=== PATIENT | female | born 1950 | race Caucasian/White ===

== ENCOUNTER 2017-02-12 14:40 | Emergency (ER) | payer OTHER, MEDICARE ==
[2017-02-12] MEDS ORDERED: NS 1,000 ML IV ONE ×2 (15:01→16:52)
[2017-02-12 15:08] VITALS: RESP 16
--- NOTE | 2017-02-12 15:19 | UCPHY ---
H & P Patient Type: New Chief Complaint Nursing Narrative: N/V since 0300 this AM in pt with diagnosed colitis and IBSD. took Zofran at 1100 which helped some, but feels severely dehydrated. Time Seen by Provider: 02/12/17 14:59 HPI/ROS: CHIEF COMPLAINT: Nausea and vomiting. HISTORY OF PRESENT ILLNESS: The patient is a 66-year-old female with history of lymphocytic colitis (" while she does have daily diarrhea, it is not bloody) who presenting with nausea and vomiting There has been no change in her colon output and diarrhea as per her baseline The patient arrived to [place] 5 days ago. She went to [place] over the weekend and developed nausea and vomiting. She took Zofran which slightly improved her symptoms. The patient woke up at 3am with nausea and vomiting. She reports multiple episodes of emesis, that will not stop. She has no associated abdominal pain fever or chills. No sick contacts. The patient has diarrhea due to colitis and denies any changes with her diarrhea. No fever or chills. REVIEW OF SYSTEMS: Constitutional: No fever, no chills. Eyes: No discharge. ENT: No sore throat. Cardiovascular: No chest pain, no palpitations. Respiratory: No cough, shortness of breath, or wheezing. Gastrointestinal: See above. Genitourinary: No hematuria or frequency. Musculoskeletal: No back pain. Skin: No rashes. Neurological: No headache. 10 point ROS otherwise negative Source: Patient - Personal History Current Tetanus Diphtheria and Acellular Pertussis (TDAP): Yes - Medical/Surgical History Hx Asthma: No Hx Chronic Respiratory Disease: No Hx Diabetes: No Hx Cardiac Disease: No Hx Renal Disease: No Hx Cirrhosis: No Hx Alcoholism: No Hx HIV/AIDS: No Hx Splenectomy or Spleen Trauma: No Other PMH: IBSD, lymphocytic colitis - Family History Significant Family History: No pertinent family hx - Social History Smoking Status: Never smoked Alcohol Use: None Drug Use: None - Physical Exam Exam: General Appearance: Alert, no distress. Afebrile. Normal phonation. No respiratory distress. Eyes: Pupils equal and round no pallor or injection. No icterus ENT, Mouth: Mucous membranes dry. Pharynx without erythema or exudate. TM Clear. Neck: No adenopathy. Supple. No JVD. Trachea in midline. Respiratory: There are no retractions, lungs are clear to auscultation. Cardiovascular: Regular rate and rhythm, without murmur Abdomen: Soft and nontender, no masses, bowel sounds normal. Neurological: Ox3. No motor weakness. Sensation intact. Gait nl. Skin: Warm and dry, no rashes. Musculoskeletal: No joint swelling. Extremities: No edema. Homans sign negative. No cords. Psychiatric: Normal affect. Patient is oriented X 3, there is no agitation Constitutional: Initial Vital Signs Temperature (C) 37.6 C 02/12/17 15:05 Heart Rate 93 02/12/17 15:05 Respiratory Rate 16 02/12/17 15:05 Blood Pressure 116/75 02/12/17 15:05 O2 Sat (%) 93 02/12/17 15:05 O2 Delivery Mode Room Air Allergies/Adverse Reactions: meperidine [From Demerol] Allergy (Verified 02/12/17 15:04) NSAIDS (Non-Steroidal Anti-Inflamma Allergy (Verified 02/12/17 15:04) Home Medications: Medication Instructions Recorded Herbals/Supplements -Info Only 02/12/17 Ondansetron HCl [Zofran] 4 mg PO Q4H PRN #6 tablet 02/12/17 Medical Decision Making - Diagnostics Imaging: Imaging Impressions Abdomen CT 02/12/17 18:46 Impression: 1. Nonspecific bowel gas pattern with mild fluid-filled distention of small bowel loops diffusely, suggestive of enteritis. No CT features of acute diverticulitis identified. 2. Prominent adnexal vessels within the pelvis on the left, possible pelvic congestion syndrome. 3. Other findings, as above. Results called to Dr. Joshua Murguia. Films by me on the PAC system ED Course/Re-evaluation: The patient is a 66-year-old female with lymphocytic colitis who presents with nausea and vomiting. The patient is visiting [place] from [place]. She arrived 5 days ago. She went to [place] and started vomiting. She took Zofran which slightly improved her symptoms. Last night around 3am she woke up with nausea and vomiting. No associated abdominal pain. She has chronic diarrhea due to colitis. She denies any changes with her diarrhea. A stool culture was ordered to look for clostridium difficile. She has not been on recent antibiotics. No recent travel outside of the [place]. Labs are insignificant. IV was established, the patient received 2L normal saline for volume depletion and 4mg Zofran for nausea. 5:30 p.m.: Per nurse, the patient continues to feel nauseous. Patient received another 4mg Zofran. 6:00 p.m.: The patient is febrile at 101. She received Acetaminophen PO. Plan to check urinalysis and lactic acid 6:40 p.m.: On reexamination, the patient has some abdominal tenderness. Plan for CT to look for diverticulitis or other cause of infection. My review showed a normal white count, essentially normal urinalysis except for elevated concentration from dehydration, and CT findings as below: CT scan of Abdomen & Pelvis. Performed with IV contrast. Interpreted by radiologist. Films reviewed by me. Findings as follows: Fluid in the small bowel compatible with enteritis. I shared these results with patient and referred her for follow-up tomorrow if she is not lot better Differential Diagnosis: Differential diagnosis includes, but is not limited to: Gastroenteritis, dehydration, diverticulitis, hepatitis, cholecystitis, appendicitis, food poisoning, bacterial dysentery - Data Points Laboratory Results: Laboratory Results 02/12/17 15:20 02/12/17 15:20 02/12/17 02/12/17 02/12/17 18:15 15:20 15:20 WBC 7.59 10^3/uL 10^3/uL (3.80-9.50) RBC 4.28 10^6/uL 10^6/uL (4.18-5.33) Hgb 13.0 g/dL g/dL (12.6-16.3) Hct 38.8 % % (38.0-47.0) MCV 90.7 fL fL (81.5-99.8) MCH 30.4 pg pg (27.9-34.1) MCHC 33.5 g/dL g/dL (32.4-36.7) RDW 13.2 % % (11.5-15.2) Plt Count 184 10^3/uL 10^3/uL (150-400) MPV 9.4 fL fL (8.7-11.7) Neut % (Auto) 90.0 % H % (39.3-74.2) Lymph % (Auto) 5.8 % L % (15.0-45.0) Fleming % (Auto) 3.6 % L % (4.5-13.0) Eos % (Auto) 0.1 % L % (0.6-7.6) Baso % (Auto) 0.1 % L % (0.3-1.7) Nucleat RBC Rel Count 0.0 % % (0.0-0.2) Absolute Neuts (auto) 6.83 10^3/uL H 10^3/uL (1.70-6.50) Absolute Lymphs (auto) 0.44 10^3/uL L 10^3/uL (1.00-3.00) Absolute Monos (auto) 0.27 10^3/uL L 10^3/uL (0.30-0.80) Absolute Eos (auto) 0.01 10^3/uL L 10^3/uL (0.03-0.40) Absolute Basos (auto) 0.01 10^3/uL L 10^3/uL (0.02-0.10) Absolute Nucleated RBC 0.00 10^3/uL 10^3/uL (0-0.01) Immature Gran % 0.4 % % (0.0-1.1) Immature Gran # 0.03 10^3/uL 10^3/uL (0.00-0.10) VBG Lactic Acid Sodium 138 mEq/L mEq/L (134-144) Potassium 4.0 mEq/L mEq/L (3.5-5.2) Chloride 98 mEq/L mEq/L (97-110) Carbon Dioxide 25 mEq/l mEq/l (22-31) Anion Gap 15 mEq/L mEq/L (8-16) BUN 19 mg/dL mg/dL (7-23) Creatinine 0.7 mg/dL mg/dL (0.6-1.0) Estimated GFR > 60 Glucose 104 mg/dL H mg/dL (70-100) Calcium 8.7 mg/dL mg/dL (8.5-10.4) Magnesium 1.7 mg/dL mg/dL (1.6-2.3) Urine Color YELLOW Urine Appearance CLEAR Urine pH 6.0 (5.0-7.5) Ur Specific [place] 1.025 (1.002-1.030) Urine Protein NEGATIVE (NEGATIVE) Urine Ketones NEGATIVE (NEGATIVE) Urine Blood 2+ H (NEGATIVE) Urine Nitrate NEGATIVE (NEGATIVE) Urine Bilirubin NEGATIVE (NEGATIVE) Urine Urobilinogen 0.2 EU EU (0.2-1.0) Ur Leukocyte Esterase NEGATIVE (NEGATIVE) Urine RBC 50-182 /hpf H /hpf (0-3) Urine WBC 0-1 /hpf /hpf (0-3) Ur Epithelial Cells 2+ /lpf H /lpf (NONE-1+) Urine Bacteria 2+ /hpf H /hpf (NONE SEEN) Urine Mucus 3+ /lpf H /lpf (NONE-1+) Urine Yeast OCCASIONAL /hpf H /hpf (NONE SEEN) Ur Culture Indicated? INDICATED H (NI) Urine Glucose NEGATIVE (NEGATIVE) 02/12/17 15:20 WBC RBC Hgb Hct MCV MCH MCHC RDW Plt Count MPV Neut % (Auto) Lymph % (Auto) Fleming % (Auto) Eos % (Auto) Baso % (Auto) Nucleat RBC Rel Count Absolute Neuts (auto) Absolute Lymphs (auto) Absolute Monos (auto) Absolute Eos (auto) Absolute Basos (auto) Absolute Nucleated RBC Immature Gran % Immature Gran # VBG Lactic Acid 1.3 mmol/L mmol/L (0.7-2.1) Sodium Potassium Chloride Carbon Dioxide Anion Gap BUN Creatinine Estimated GFR Glucose Calcium Magnesium Urine Color Urine Appearance Urine pH Ur Specific [place] Urine Protein Urine Ketones Urine Blood Urine Nitrate Urine Bilirubin Urine Urobilinogen Ur Leukocyte Esterase Urine RBC Urine WBC Ur Epithelial Cells Urine Bacteria Urine Mucus Urine Yeast Ur Culture Indicated? Urine Glucose Medications Given: Discontinued Medications Acetaminophen (Tylenol) 650 mg PO EDNOW ONE Stop: 02/12/17 19:43 Last Admin: 02/12/17 19:43 Dose: 650 mg Sodium Chloride (Ns) 1,000 mls @ 0 mls/hr IV ONCE ONE PRN Reason: As Directed Stop: 02/12/17 15:02 Last Admin: 02/12/17 15:15 Dose: 1,000 mls Sodium Chloride (Ns) 1,000 mls @ 0 mls/hr IV ONCE ONE PRN Reason: Wide Open Stop: 02/12/17 16:53 Last Admin: 02/12/17 17:00 Dose: 1,000 mls Ondansetron HCl (Zofran) 4 mg IVP EDNOW ONE Stop: 02/12/17 16:52 Last Admin: 02/12/17 16:51 Dose: 4 mg Ondansetron HCl (Zofran) 4 mg IVP EDNOW ONE Stop: 02/12/17 19:06 Last Admin: 02/12/17 19:23 Dose: 4 mg Ondansetron HCl (Zofran Odt 4 Mg Prepack#2) 1 btl TAKEHOME EDNOW ONE Stop: 02/12/17 19:46 Last Admin: 02/12/17 19:52 Dose: 1 btl Departure - Departure Disposition: Home, Routine, Self-Care Clinical Impression: Gastroenteritis and colitis, viral Vomiting Qualifiers: Vomiting type: unspecified Vomiting Intractability: non-intractable Nausea presence: with nausea Qualified Code(s): R11.2 - Nausea with vomiting, unspecified Condition: Good Instructions: Acute Nausea and Vomiting (ED) Additional Instructions: Take Zofran as directed for nausea and vomiting. I recommend a bland diet with gradual advancement over the next 24 hours. Drink plenty of fluids. Please followup with your primary care physician when your return home. Referrals: Out of [place], [place]. [Other] - As per Instructions (See your PCP when your return to [place]. ) Brandan Arriola MD [Medical Doctor] - As per Instructions Prescriptions: Ondansetron HCl [Zofran] 4 mg PO Q4H PRN #6 tablet PRN Reason: nausea and vomiting - PQRS PQRS Measurement: 134: Depression screening and followup, PRIME MD-PHQ2 (12 years and older) Over the last 2 weeks, how often have you been bothered by any of the following problems? 1. Feeling down, depressed, or hopeless? 2. Little interest or pleasure in doing things? [Patient answered no to both 1 and 2] [Patient answered yes to at least 1, referred to PCP for further evaluation.] [Not done because] [altered mental status] [patient refused] [critically ill.] 130: Documentation of medications. [Reviewed all patient medications, doses, route and frequency.] [Unable to obtain meds due to] [critical illness] [altered mental status] [ patient did not know]. 226: Do you smoke? [No.] [Yes, counseled to stop.] 47: 65 and older: Advanced care planning. Patient designates surrogate decision maker as [parent] [spouse] [ ]. [Patient refused.] [Patient has advanced directive.] 51: 18 years old and older with diagnosis of COPD, spirometry performance. [Patient has no history of COPD] [Spirometry not performed; equipment not available.] 52: 18 years old and older with COPD and symptoms of COPD or FEV1<60% predicted prescribed a B Agonist. [Patient has no history of COPD] [Spirometry not performed; equipment not available.] Report Scribed for: Joshua Murguia Report Scribed by: Britni Centeno Date of Report: 02/12/17 Time of Report: 15:18
[2017-02-12 15:51] LABS: ANION GAP 15 mEq/L (8-16); CALCIUM 8.7 mg/dL (8.5-10.4); CARBON DIOXIDE 25 mEq/l (22-31); CHLORIDE 98 mEq/L (97-110); CREATININE 0.7 mg/dL (0.6-1.0); GLOMERULAR FILTRATION RATE > 60; GLUCOSE 104 mg/dL (70-100); MAGNESIUM 1.7 mg/dL (1.6-2.3); SODIUM 138 mEq/L (134-144)
[2017-02-12 15:53] LABS: % IMMATURE GRANULYOCYTES 0.4 % (0.0-1.1); ABSOLUTE IMMATURE GRANULOCYTES 0.03 10^3/uL (0.00-0.10); ADD DIFF? NO; ADD MORPH? NO; ADD SCAN? NO; ATYPICAL LYMPHOCYTE FLAG 0 (0-99); FRAGMENT RBC FLAG 0 (0-99); HEMATOCRIT 38.8 % (38.0-47.0); LEFT SHIFT FLG 20 (0-99); LIPEMIA HEMOLYSIS FLAG 80 (0-99); MEAN CELL HEMOGLOBIN 30.4 pg (27.9-34.1); MEAN CELL HEMOGLOBIN CONCENTR. 33.5 g/dL (32.4-36.7); MEAN CELL VOLUME 90.7 fL (81.5-99.8); MEAN PLATELET VOLUME 9.4 fL (8.7-11.7); PLATELET CLUMPS FLAG 0 (0-99); PLATELET COUNT 184 10^3/uL (150-400); RED BLOOD CELL COUNT 4.28 10^6/uL (4.18-5.33); RED CELL DISTRIBUTION WIDTH 13.2 % (11.5-15.2)
[2017-02-12] MEDS ORDERED: ONDANSETRON 4 MG/2 ML VIAL ONE (16:40)
[2017-02-12] MEDS ORDERED: ONDANSETRON 4 MG/2 ML VIAL IVP ONE ×2 (16:51→19:05)
[2017-02-12 18:31] LABS: COLOR YELLOW; LEUKOCYTE ESTERASE,URINE NEGATIVE (NEGATIVE); NITRITE,URINE NEGATIVE (NEGATIVE)
[2017-02-12 18:45] LABS: WBC,URINE 0-1 /hpf (0-3)
[2017-02-12 18:46] LABS: BACTERIA 2+ /hpf (NONE SEEN); MUCUS 3+ /lpf (NONE-1+); RBC,URINE 50-182 /hpf (0-3); YEAST OCCASIONAL /hpf (NONE SEEN)
[2017-02-12] MEDS ORDERED: IOPAMIDOL (ISOVUE-300) 100 ML BTL IV ONE (18:54)
[2017-02-12] MEDS ORDERED: ACETAMINOPHEN 325 MG TAB PO ONE (19:42)
[2017-02-12] MEDS ORDERED: ONDANSETRON 4MG PREPACK#2 BTL TAKEHOME ONE (19:45)
[2017-02-12 20:12] VITALS: BP 100/50; PULSE 78; TEMP 99.1; O2SAT 92
== END 2017-02-12 20:08 | disposition home or self-care (01) ==
LOC: CED 14:40
DX: R11.2 Nausea with vomiting, unspecified (principal); K52.832 Lymphocytic colitis
CPT/HCPCS: 74177; 96361; 96374; 96376; G0463; J2405; Q9967; 80048-PO; 81003-PO; 81015-PO; 83605-PO; 83735-PO; 85025-PO; 99205-PO